=== PATIENT | female | born 1995 | race African-American/Black ===

== ENCOUNTER 2017-02-04 14:35 | Emergency (ER) | payer OTHER ==
[~2017-02-04] VITALS: Ht 162.6 cm; Wt 95.4 kg
[~2017-02-04 14:35] MED LIST: CIPRO500 MG PO; NAPROSYN500 MG PO; NORCO 5/3251 TABLET PO; no home med
[2017-02-04 15:38] LABS: HEMATOCRIT 34.8 % (36.0-46.0); MCH 24.6 PG (29.0-34.0); MCHC 31.6 G/DL (30.0-36.0); MCV 77.9 FL (83-99); MEAN PLAT.VOLUME 10.5 uM^3 (9.5-12.4); PLATELET COUNT 328 K/uL (156-360); RBC DIS.WIDTH-CV 16.5 % (11.8-14.6); RBC DIS.WIDTH-SD 46.5 % (39-53); RED BLOOD COUNT 4.47 M/uL (3.80-5.20); WHITE BLOOD COUNT 8.4 K/uL (4.1-10.2)
[2017-02-04 15:46] LABS: CHLORIDE 109 mEq/L (99-109); SODIUM 140 mEq/L (136-147)
[2017-02-04 15:49] LABS: GLUCOSE 86 mg/dL (70-99)
[2017-02-04 15:50] LABS: ANION GAP 7 MEQ/L (2-14)
[2017-02-04 15:51] LABS: TOTAL BILIRUBIN 0.3 mg/dL (0.0-1.0)
[2017-02-04 15:52] LABS: ALKALINE PHOSPHATASE 69 IU/L (3-129); GFR ESTIMATE (CALCULATED) > 59 mL/min/
[2017-02-04 15:53] LABS: UREA NITROGEN (BUN) 15 mg/dL (9-23)
[2017-02-04 16:02] LABS: ADD MIUA? YES; BILIRUBIN NEGATIVE; BLOOD NEGATIVE; COLOR YELLOW ((YELLOW)); GLUCOSE (STRIP) NEGATIVE; KETONES 20; LEUKOCYTES LARGE; NITRITE NEGATIVE; PROTEIN (STRIP) NEGATIVE
[2017-02-04 16:07] LABS: QUANTITATIVE HCG 4723.2 MIU/ML
[2017-02-04 16:24] LABS: EPITHELIAL CELLS 1+ /HPF; RED BLOOD CELLS NONE SEEN /HPF (0-5); WHITE BLOOD CELLS 20-30 /HPF (0-5)
[2017-02-04 16:25] LABS: BACTERIA 1+ /HPF; MUCUS 3+ /LPF; UCUL ADDED? YES
[2017-02-04] MEDS ORDERED: KEFLEX500 MG PO (16:27)
[2017-02-04 17:00] VITALS: BP 129/80
== END 2017-02-04 17:00 | disposition home or self-care (01) ==
LOC: EME 14:35
DX: O23.41 Unspecified infection of urinary tract in pregnancy, first trimester (principal); Z3A.01 Less than 8 weeks gestation of pregnancy; O99.331 Smoking (tobacco) complicating pregnancy, first trimester; F17.200 Nicotine dependence, unspecified, uncomplicated
CPT/HCPCS: 80053; 81003; 84702; 85027; 87086; 99281; 99284

== ENCOUNTER 2017-06-08 15:43 | Emergency (ER) | payer OTHER ==
[~2017-06-08] VITALS: Ht 152.4 cm; Wt 97.0 kg
[~2017-06-08 15:43] MED LIST changes: +KEFLEX500 MG PO
[2017-06-08 16:30] LABS: HEMATOCRIT 32.3 % (36.0-46.0); HEMOGLOBIN 10.5 G/DL (11.9-15.5); MCH 26.3 PG (29.0-34.0); MCHC 32.5 G/DL (30.0-36.0); PLATELET COUNT 229 K/uL (156-360); RBC DIS.WIDTH-CV 14.7 % (11.8-14.6); RBC DIS.WIDTH-SD 43.6 % (39-53); RED BLOOD COUNT 3.99 M/uL (3.80-5.20); WHITE BLOOD COUNT 7.1 K/uL (4.1-10.2)
[2017-06-08 16:39] LABS: ALBUMIN 3.4 g/dL (3.2-4.8); CHLORIDE 105 mEq/L (99-109); POTASSIUM 3.8 mEq/L (3.7-5.4); SODIUM 137 mEq/L (136-147)
[2017-06-08 16:42] LABS: GLUCOSE 83 mg/dL (70-99); TOTAL PROTEIN 6.4 g/dL (6.4-8.3)
[2017-06-08 16:43] LABS: APPEARANCE CLOUDY ((CLEAR)); BILIRUBIN NEGATIVE; BLOOD NEGATIVE; COLOR YELLOW ((YELLOW)); GLUCOSE (STRIP) NEGATIVE; KETONES NEGATIVE; LEUKOCYTES LARGE; NITRITE NEGATIVE; PROTEIN (STRIP) NEGATIVE; SPECIFIC GRAVITY 1.021 (1.000-1.030); UROBILINOGEN 0.2 MG/DL (0.2-1.0)
[2017-06-08 16:44] LABS: TOTAL BILIRUBIN 0.2 mg/dL (0.0-1.0)
[2017-06-08 16:45] LABS: CREATININE 0.6 mg/dL (0.6-1.3); GFR ESTIMATE (CALCULATED) > 59 mL/min/
[2017-06-08 16:46] LABS: ALKALINE PHOSPHATASE 58 IU/L (3-129)
[2017-06-08 16:47] LABS: AST (GOT) 9 IU/L (2-34); UREA NITROGEN (BUN) 7 mg/dL (9-23)
[2017-06-08 16:49] LABS: ACETAMINOPHEN (TYLENOL) < 10 mcg/mL (10-30); ALT (GPT) 9 IU/L (3-49); SALICYLATE < 5.0 MG/DL (15-30)
[2017-06-08 16:52] LABS: AMPHETAMINE NEGATIVE (500 ng/mL); BARBITURATES NEGATIVE (200 ng/mL); BENZODIAZEPINES NEGATIVE (150 ng/mL); BUPRENORPHINE NEGATIVE (10 ng/mL); COCAINE NEGATIVE (150 ng/mL); METHADONE NEGATIVE (200 ng/mL); METHAMPHETAMINE NEGATIVE (500 ng/mL); OPIATES (MORPHINE) NEGATIVE (100 ng/mL); OXYCODONE NEGATIVE (100 ng/mL); PHENCYCLIDINE NEGATIVE (25 ng/mL); PROPOXYPHENE NEGATIVE (300 ng/mL); THC CANNABINOIDS PRESUMPTIVE POSITIVE (50 ng/mL); TRICYCLIC ANTIDEPRESSANTS NEGATIVE (300 ng/mL)
[2017-06-08 16:55] LABS: BACTERIA 1+ /HPF; EPITHELIAL CELLS 3+ /HPF; MUCUS NONE SEEN /LPF; RED BLOOD CELLS 0-5 /HPF (0-5); UCUL ADDED? YES
[2017-06-08 17:13] LABS: QUANTITATIVE HCG 18424.1 MIU/ML
[2017-06-08] MEDS ORDERED: KEFLEX500 MG PO (17:32)
[2017-06-08] MEDS ORDERED: ZOLOFT50 MG PO (18:09)
[2017-06-08 18:28] VITALS: BP 124/65
== END 2017-06-08 18:29 | disposition home or self-care (01) ==
LOC: EME 15:43
PROVIDERS: Physician Assistant
DX: O99.342 Other mental disorders complicating pregnancy, second trimester (principal); F32.9 Major depressive disorder, single episode, unspecified; R45.851 Suicidal ideations; O23.42 Unspecified infection of urinary tract in pregnancy, second trimester; Z3A.24 24 weeks gestation of pregnancy; F41.9 Anxiety disorder, unspecified; O99.332 Smoking (tobacco) complicating pregnancy, second trimester; F17.200 Nicotine dependence, unspecified, uncomplicated
CPT/HCPCS: 80053; 81003; 84702; 84999; 85027; 87086; 90839; 99281; 99285; G0480

== ENCOUNTER 2017-10-07 21:51 | Inpatient (IN) | payer OTHER ==
[~2017-10-07] VITALS: Ht 160 cm; Wt 115.9 kg
[2017-10-07] VITALS (9 sets, daily range): BP systolic 141–186; BP diastolic 67–109
[~2017-10-07 21:51] MED LIST changes: +ZOLOFT50 MG PO
[2017-10-07 23:32] LABS: AMPHETAMINE NEGATIVE (500 ng/mL); BARBITURATES NEGATIVE (200 ng/mL); BENZODIAZEPINES NEGATIVE (150 ng/mL); BUPRENORPHINE NEGATIVE (10 ng/mL); COCAINE NEGATIVE (150 ng/mL); METHADONE NEGATIVE (200 ng/mL); METHAMPHETAMINE NEGATIVE (500 ng/mL); OPIATES (MORPHINE) NEGATIVE (100 ng/mL); OXYCODONE NEGATIVE (100 ng/mL); PHENCYCLIDINE NEGATIVE (25 ng/mL); PROPOXYPHENE NEGATIVE (300 ng/mL); THC CANNABINOIDS NEGATIVE (50 ng/mL); TRICYCLIC ANTIDEPRESSANTS NEGATIVE (300 ng/mL)
[2017-10-07 23:39] LABS: BASOPHIL (%) 0.3 % (0-1); EOSINOPHIL (%) 1.4 % (0-5); EOSINOPHIL COUNT 0.1 K/uL (0-0.3); HEMATOCRIT 32.6 % (36.0-46.0); HEMOGLOBIN 10.5 G/DL (11.9-15.5); IMMATURE GRANULOCYTE (%) 0.5 % (0.0-0.7); LYMPHOCYTE (%) 26.3 % (15-42); MCH 26.2 PG (29.0-34.0); MCHC 32.2 G/DL (30.0-36.0); MCV 81.3 FL (83-99); MONOCYTE (%) 10.6 % (3-12); MONOCYTE COUNT 0.8 K/uL (0-0.8); NEUTROPHIL (%) 60.9 % (45-76); NEUTROPHIL COUNT 4.7 K/uL (1.8-6.4); PLATELET COUNT 190 K/uL (156-360); RBC DIS.WIDTH-CV 14.6 % (11.8-14.6); RED BLOOD COUNT 4.01 M/uL (3.80-5.20); WHITE BLOOD COUNT 7.7 K/uL (4.1-10.2)
[2017-10-07 23:46] LABS: ALBUMIN 3.3 g/dL (3.2-4.8); CHLORIDE 109 mEq/L (99-109); POTASSIUM 4.2 mEq/L (3.7-5.4); SODIUM 138 mEq/L (136-147)
[2017-10-07 23:49] LABS: GLUCOSE 84 mg/dL (70-99); TOTAL PROTEIN 6.2 g/dL (6.4-8.3)
[2017-10-07 23:51] LABS: TOTAL BILIRUBIN 0.2 mg/dL (0.0-1.0)
[2017-10-07 23:52] LABS: ALKALINE PHOSPHATASE 114 IU/L (3-129); CREATININE 0.6 mg/dL (0.6-1.3); GFR ESTIMATE (CALCULATED) > 59 mL/min/
[2017-10-07 23:53] LABS: UREA NITROGEN (BUN) 15 mg/dL (9-23)
[2017-10-07 23:54] LABS: AST (GOT) 18 IU/L (2-34)
[2017-10-07 23:55] LABS: ALT (GPT) 19 IU/L (3-49); URIC ACID 4.7 mg/dL (3.1-9.2)
[2017-10-08] VITALS (44 sets, daily range): BP systolic 116–187; BP diastolic 57–91
[2017-10-08 00:06] LABS: UR CREATININE CONCENTRATION 208.3 MG/DL
[2017-10-08] MEDS ORDERED: MOTRIN800 MG PO (22:04)
[2017-10-09] VITALS (8 sets, daily range): BP systolic 122–184; BP diastolic 58–81
[2017-10-09 07:40] LABS: BASOPHIL (%) 0.2 % (0-1); EOSINOPHIL (%) 0.6 % (0-5); EOSINOPHIL COUNT 0.1 K/uL (0-0.3); HEMATOCRIT 24.8 % (36.0-46.0); IMMATURE GRANULOCYTE (%) 0.5 % (0.0-0.7); LYMPHOCYTE (%) 14.3 % (15-42); LYMPHOCYTE COUNT 1.5 K/uL (1.0-2.8); MCH 25.3 PG (29.0-34.0); MCHC 31.5 G/DL (30.0-36.0); MCV 80.5 FL (83-99); MONOCYTE (%) 9.9 % (3-12); NEUTROPHIL (%) 74.5 % (45-76); NEUTROPHIL COUNT 7.7 K/uL (1.8-6.4); PLATELET COUNT 163 K/uL (156-360); RBC DIS.WIDTH-CV 14.6 % (11.8-14.6); RBC DIS.WIDTH-SD 42.5 % (39-53); WHITE BLOOD COUNT 10.4 K/uL (4.1-10.2)
[2017-10-09 07:42] LABS: HEMOGLOBIN 7.8 G/DL (11.9-15.5); RED BLOOD COUNT 3.08 M/uL (3.80-5.20)
[2017-10-10 02:45] VITALS: BP 141/74
[2017-10-10 08:19] VITALS: BP 120/56
[2017-10-10] MEDS ORDERED: LABETALOL HCL100 MG PO (09:53)
[2017-10-10] MEDS ORDERED: FERROUS SULFAT325 MG PO (09:53)
[2017-10-10 12:11] VITALS: BP 145/72
[2017-10-10 16:05] VITALS: BP 141/81
== END 2017-10-10 18:30 | disposition home or self-care (01) | DRG 775 ==
LOC: LDRP-OP 21:51 → 2WEST 21:52 → LDRP-OP 11-10 17:26
PROVIDERS: Advanced Practice Midwife; Nurse Practitioner
PROC: 3E0R3BZ Introduction of Anesthetic Agent into Spinal Canal, Percutaneous Approach (ICD-10-PCS; principal; 2017-10-08)
PROC: 10E0XZZ Delivery of Products of Conception, External Approach (ICD-10-PCS; principal; 2017-10-08)
PROC: 3E033VJ Introduction of Other Hormone into Peripheral Vein, Percutaneous Approach (ICD-10-PCS; principal; 2017-10-08)
PROC: 3E0P7VZ Introduction of Hormone into Female Reproductive, Via Natural or Artificial Opening (ICD-10-PCS; principal; 2017-10-08)
PROC: 00HU33Z Insertion of Infusion Device into Spinal Canal, Percutaneous Approach (ICD-10-PCS; principal; 2017-10-08)
DX: O13.4 Gestational [pregnancy-induced] hypertension without significant proteinuria, complicating childbirth (principal); O99.824 Streptococcus B carrier state complicating childbirth; O99.02 Anemia complicating childbirth; D62 Acute posthemorrhagic anemia; O99.214 Obesity complicating childbirth; E66.9 Obesity, unspecified; Z68.34 Body mass index [BMI] 34.0-34.9, adult; Z3A.39 39 weeks gestation of pregnancy; Z37.0 Single live birth; Z87.891 Personal history of nicotine dependence
CPT/HCPCS: 80053; 82570; 84156; 84550; 85025; C1755; G0378; J2540; J3010; J7120